=== PATIENT | female | born 1950 | race Asian ===

== ENCOUNTER 2022-09-20 08:02 | Observation (INO) | payer MEDICARE ==
[2022-09-19 11:14] LABS: BASOPHILS % 0.8 % (0.0-1.0); EOSINOPHILS # (AUTO) 0.1 (0.0-0.4); EOSINOPHILS % 1.7 % (0.0-6.0); HEMATOCRIT 40.9 % (34.2-44.1); HEMOGLOBIN 13.5 g/dL (12.0-16.0); LYMPHOCYTES # (AUTO) 1.7 (1.0-3.2); LYMPHOCYTES % 32.4 % (18.0-39.1); MEAN CORPUSCULAR HEMOGLOBIN 28.8 pg (28-32); MEAN CORPUSCULAR VOLUME 87.2 fL (81-99); MONOCYTES # (AUTO) 0.3 (0.2-0.8); MONOCYTES % 6.4 % (4.4-11.3); NEUTROPHILS % 58.5 % (38.7-80.0); PLATELET COUNT 280 x10e3/uL (140-360); RED BLOOD COUNT 4.69 x10e6/uL (3.6-5.1)
[2022-09-19 11:45] LABS: ANION GAP 12.9 mmol/L (8-16); BLOOD UREA NITROGEN 11 mg/dL (7-26); BUN/CREATININE RATIO 14 (6-25); CALCIUM 9.2 mg/dL (8.4-10.2); CARBON DIOXIDE 30 mmol/L (22-29); CHLORIDE 104 mmol/L (98-107); CREATININE, SERUM 0.79 mg/dL (0.57-1.11); GLUCOSE 115 mg/dL (74-118); POTASSIUM 3.9 mmol/L (3.5-5.1); SODIUM 143 mmol/L (136-145)
[~2022-09-20] VITALS: Ht 160 cm; Wt 64.4 kg
[~2022-09-20 08:02] MED LIST: FAMOTIDINE20 MG PO; METFORMIN HCL500 MG PO; NAPROSYN500 MG PO; NEURONTIN100 MG PO; ROPIVACAINE 246.25 MG, EPINEPHRINE HCL 1:1000 1ML 0.5 MG, CLONIDINE HCL 0.08 MG, KETORO... INJ ONE; ZESTRIL40 MG PO
[2022-09-20] MEDS ORDERED: CELECOXIB 200 MG CAP ONE (08:20)
[2022-09-20] MEDS ORDERED: DEXAMETHASONE SOD PHOS 10 MG/1 ML VIAL ONE (08:20)
[2022-09-20] MEDS ORDERED: GABAPENTIN 300 MG CAP ONE (08:20)
[2022-09-20] MEDS ORDERED: LACTATED RINGER'S 1,000 ML ONE (08:21)
[2022-09-20] MEDS ORDERED: CEFAZOLIN SODIUM 2 GM ONE (08:21)
[2022-09-20] MEDS ORDERED: BUPIVACAINE 0.25% 30ML SDV ONE ×2 (10:23→13:12)
[2022-09-20] MEDS ORDERED: Vancomycin IV 1,000 MG ONE (10:25)
[2022-09-20] MEDS ORDERED: SODIUM CHLORIDE 0.9% 500ML 500 ML ONE (10:25)
[2022-09-20] MEDS ORDERED: ACETAMINOPHEN 1000 MG/100 ML 100 ML IV ONE (10:34)
[2022-09-20] MEDS ORDERED: TRANEXAMIC ACID 20 ML ONE (11:32)
[2022-09-20] MEDS ORDERED: LIDOCAINE HCL 2% LOCAL INJ 5 ML SDV VIAL INJ ONE (12:26)
[2022-09-20] MEDS ORDERED: SEVOFLURANE INHAL SOLN 250 ML PEN BTL ONE (12:26)
[2022-09-20] MEDS ORDERED: ONDANSETRON HCL INJ 2MG/ML 2ML 2 MG/ML VIAL ONE (12:26)
[2022-09-20] MEDS ORDERED: POVIDONE IODINE 0.05% 0.05 % ML PO ONE (12:26)
[2022-09-20] MEDS ORDERED: PROPOFOL IV EMULSION 10 MG/ML 20 ML VIAL ONE (12:26)
[2022-09-20] MEDS ORDERED: DEXAMETHASONE SOD PHOS INJ 4 MG/ML SDV ONE (12:26)
[2022-09-20] MEDS ORDERED: ACETAMINOPHEN 650 MG SUPP PR PRN (12:45)
[2022-09-20] MEDS ORDERED: HYDROCODONE/APAP 7.5MG-325MG 1 EA TAB PO PRN (12:45)
[2022-09-20] MEDS ORDERED: ONDANSETRON HCL INJ 2MG/ML 2ML 2 MG/ML VIAL IV PRN (12:45)
[2022-09-20] MEDS ORDERED: ZOLPIDEM TARTRATE 5 MG TAB PO PRN (12:45)
[2022-09-20] MEDS ORDERED: HYDROCODONE/APAP 5MG-325MG TAB PO PRN (12:45)
[2022-09-20] MEDS ORDERED: DIPHENHYDRAMINE HCL INJ 50 MG/ML VIAL IV PRN (12:45)
[2022-09-20] MEDS ORDERED: DOCUSATE SODIUM 100 MG CAP PO PRN (12:45)
[2022-09-20] MEDS ORDERED: FENTANYL CITRATE/PF 100MCG/2 ML INJ ONE ×2 (13:38→13:39)
[2022-09-20] MEDS ORDERED: MIDAZOLAM HCL 2 MG/2 ML VIAL ONE (13:38)
[2022-09-20 15:18] VITALS: BP 128/68
[2022-09-20 15:23] VITALS: BP 128/68
[2022-09-20 15:31] VITALS: BP 128/68
[2022-09-20] MEDS: CELECOXIB 100 MG CAP PO SCH (16:20)
[2022-09-20] MEDS: SODIUM CHLORIDE 0.9% 1000ML 1,000 ML IV SCH ×2 (16:20→22:45)
[2022-09-20] MEDS: ASPIRIN 325 MG TAB PO SCH (16:20)
[2022-09-20] MEDS ORDERED: ASPIRIN81 MG PO (16:38)
[2022-09-20] MEDS ORDERED: ACETAMINOPHEN 1000 MG/100 ML IV PRN (18:00)
[2022-09-20] MEDS ORDERED: DEXTROSE 50% SYRINGE 50 ML IV PRN (18:30)
[2022-09-20 20:00] VITALS: BP_SYST 143; BP_SYST 151; BP_DIAS 83; BP_DIAS 86
[2022-09-20] MEDS: INSULIN LISPRO 100 UNIT/1 ML 3ML VIAL SQ SCH (21:57)
[2022-09-21 01:27] VITALS: BP 99/62
[2022-09-21] MEDS: SODIUM CHLORIDE 0.9% 1000ML 1,000 ML IV SCH (04:30)
[2022-09-21 04:58] VITALS: BP 127/72
[2022-09-21 05:19] LABS: HEMATOCRIT 33.5 % (34.2-44.1); HEMOGLOBIN 10.8 g/dL (12.0-16.0)
[2022-09-21] MEDS: INSULIN LISPRO 100 UNIT/1 ML 3ML VIAL SQ SCH (07:30)
[2022-09-21 08:00] VITALS: BP 135/72
[2022-09-21] MEDS ORDERED: LISINOPRIL 20 MG TAB PO SCH (09:00)
[2022-09-21] MEDS ORDERED: FAMOTIDINE 20 MG TAB PO SCH (09:00)
[2022-09-21] MEDS ORDERED: GABAPENTIN 100 MG CAP PO SCH (09:00)
[2022-09-21] MEDS: ASPIRIN 325 MG TAB PO SCH (10:01)
[2022-09-21] MEDS: CELECOXIB 100 MG CAP PO SCH (10:02)
[2022-09-21 11:18] VITALS: BP 135/72
== END 2022-09-21 12:05 | disposition home or self-care (01) ==
LOC: OR 08:02 → PACU V 13:06 → MED/SURG 14:57
PROVIDERS: ADMIT Specialist; ATTEND Specialist
DX: M17.0 Bilateral primary osteoarthritis of knee (principal); I10 Essential (primary) hypertension; E78.5 Hyperlipidemia, unspecified; K21.9 Gastro-esophageal reflux disease without esophagitis; E11.9 Type 2 diabetes mellitus without complications; Z01.810 Encounter for preprocedural cardiovascular examination; Z01.812 Encounter for preprocedural laboratory examination; Z01.818 Encounter for other preprocedural examination; Z20.822 Contact with and (suspected) exposure to COVID-19; Z79.84 Long term (current) use of oral hypoglycemic drugs; Z79.1 Long term (current) use of non-steroidal anti-inflammatories (NSAID); Z79.82 Long term (current) use of aspirin; Z79.899 Other long term (current) drug therapy
CPT/HCPCS: 0223U; 36415; 71046; 80048; 82948; 85014; 85018; 85025; 86850; 86900; 86920; 93005; 94799; C1713; C1776; G0378; J0171; J0690; J1100; J1885; J2001; J2250; J2405; J2795; J3370; J7030; J7040

== ENCOUNTER 2023-12-18 08:29 | Observation (INO) | payer MEDICARE, OTHER ==
[2023-12-15 10:26] LABS: ANION GAP 17.4 mmol/L (8-16); CALCIUM 8.7 mg/dL (8.4-10.2); CREATININE, SERUM 0.86 mg/dL (0.57-1.11); POTASSIUM 3.4 mmol/L (3.5-5.1)
[2023-12-15 10:36] LABS: EOSINOPHILS % 1.3 % (0.0-6.0); HEMATOCRIT 39.6 % (34.2-44.1); HEMOGLOBIN 13.1 g/dL (12.0-16.0); LYMPHOCYTES % 39.5 % (18.0-39.1); MEAN CORPUSCULAR HEMOGLOBIN 30.1 pg (28-32); MEAN CORPUSCULAR HGB CONC 33.1 g/dL (31-35); MONOCYTES % 8.4 % (4.4-11.3); NEUTROPHILS % 49.6 % (38.7-80.0); PLATELET COUNT 224 x10e3/uL (140-360); RED BLOOD COUNT 4.35 x10e6/uL (3.6-5.1); RED CELL DISTRIBUTION WIDTH 12.3 % (11.7-14.4); WHITE BLOOD COUNT 5.22 x10e3/uL (4.8-10.8)
[2023-12-15 10:37] LABS: BASOPHILS % 0.8 % (0.0-1.0); EOSINOPHILS # (AUTO) 0.1 (0.0-0.4); LYMPHOCYTES # (AUTO) 2.1 (1.0-3.2); MONOCYTES # (AUTO) 0.4 (0.2-0.8); NEUTROPHILS # (AUTO) 2.6 (2.1-6.9)
[~2023-12-18 08:29] MED LIST changes: +ASPIRIN81 MG PO; +CHOLESTEROL1 GM; +GARLIC1000 MG; +NEXIUM20 MG PO; +PRAVASTATIN SOD40 MG
[2023-12-18] MEDS: CELECOXIB 200 MG CAP ONE (08:40)
[2023-12-18] MEDS: CEFAZOLIN SODIUM 2 GM ONE (08:40)
[2023-12-18] MEDS: GABAPENTIN 300 MG CAP ONE (08:40)
[2023-12-18] MEDS: LACTATED RINGER'S 1,000 ML ONE (08:40)
[2023-12-18] MEDS: DEXAMETHASONE SOD PHOS 10 MG/1 ML VIAL ONE (08:40)
[2023-12-18] MEDS ORDERED: TRANEXAMIC ACID 20 ML ONE (10:31)
[2023-12-18] MEDS ORDERED: Vancomycin IV 500 MG ONE (10:31)
[2023-12-18] MEDS ORDERED: SODIUM CHLORIDE 0.9% 500ML 500 ML ONE (10:31)
[2023-12-18] MEDS ORDERED: FENTANYL CITRATE/PF 100MCG/2 ML INJ ONE ×2 (10:54→18:02)
[2023-12-18] MEDS ORDERED: MIDAZOLAM HCL 2 MG/2 ML VIAL ONE (10:54)
[2023-12-18] MEDS ORDERED: SODIUM CHLORIDE 0.9% 1000ML 1,000 ML IV SCH (12:30)
[2023-12-18] MEDS ORDERED: DOCUSATE SODIUM 100 MG CAP PO PRN (12:30)
[2023-12-18] MEDS ORDERED: ONDANSETRON HCL INJ 2MG/ML 2ML 2 MG/ML VIAL IV PRN (12:30)
[2023-12-18] MEDS ORDERED: HYDROCODONE/APAP 7.5MG-325MG 1 EA TAB PO PRN (12:30)
[2023-12-18] MEDS ORDERED: DIPHENHYDRAMINE HCL INJ 50 MG/ML VIAL IV PRN (12:30)
[2023-12-18] MEDS ORDERED: ROPIVACAINE 0.5% 5 MG/ML 30 ML SDV ONE (12:56)
[2023-12-18] MEDS ORDERED: DEXAMETHASONE SOD PHOS 10 MG/1 ML VIAL ONE (12:56)
[2023-12-18] MEDS: HYDROCODONE/APAP 5MG-325MG TAB PO PRN (14:30)
[2023-12-18] MEDS ORDERED: HYDROCODONE/APAP 5MG-325MG TAB ONE (14:33)
[2023-12-18] MEDS: ONDANSETRON HCL INJ 2MG/ML 2ML 2 MG/ML VIAL ONE (14:35)
[2023-12-18 15:10] VITALS: BP 141/80; PULSE 87; RESP 19; O2SAT 99
[2023-12-18] MEDS ORDERED: CELECOXIB 100 MG CAP PO SCH (17:00)
[2023-12-18] MEDS ORDERED: ASPIRIN 325 MG TAB PO SCH (17:00)
[2023-12-18] MEDS ORDERED: LIDOCAINE HCL 2% LOCAL INJ 5 ML SDV VIAL INJ ONE (17:44)
[2023-12-18] MEDS ORDERED: PROPOFOL IV EMULSION 10 MG/ML 20 ML VIAL ONE (17:44)
[2023-12-18] MEDS ORDERED: ACETAMINOPHEN 1000 MG/100 ML IV ONE (17:44)
[2023-12-18] MEDS ORDERED: ONDANSETRON HCL INJ 2MG/ML 2ML 2 MG/ML VIAL ONE (17:44)
[2023-12-18] MEDS ORDERED: FAMOTIDINE 20 MG/2 ML VIAL IV ONE (17:44)
[2023-12-18] MEDS ORDERED: EPHEDRINE SULFATE INJ 50 MG/ML VIAL ONE (17:44)
[2023-12-18] MEDS ORDERED: SEVOFLURANE INHAL SOLN 250 ML PEN BTL ONE (17:44)
[2023-12-19] MEDS ORDERED: ACETAMINOPHEN 1000 MG/100 ML IV PRN (12:30)
== END 2023-12-18 15:13 | disposition home health service (06) ==
LOC: OR 08:29 → PACU V 13:01
PROVIDERS: ADMIT Specialist; ATTEND Specialist
DX: M17.12 Unilateral primary osteoarthritis, left knee (principal); Z96.651 Presence of right artificial knee joint; I10 Essential (primary) hypertension; E78.00 Pure hypercholesterolemia, unspecified; E11.9 Type 2 diabetes mellitus without complications; Z79.84 Long term (current) use of oral hypoglycemic drugs; K21.9 Gastro-esophageal reflux disease without esophagitis; G89.29 Other chronic pain; R00.1 Bradycardia, unspecified; Z79.899 Other long term (current) drug therapy; Z79.82 Long term (current) use of aspirin; Z79.1 Long term (current) use of non-steroidal anti-inflammatories (NSAID)
CPT/HCPCS: 36415; 71046; 80048; 85025; 86850; 86900; 93005; C1713; C1776; G0378; J0171; J1100; J1885; J2001; J2250; J2405; J2795; J3370; J7040